=== PATIENT | female | born 1965 | race Caucasian/White ===

== ENCOUNTER 2024-03-24 13:50 | Outpatient (CLI) | payer OTHER | END 2024-03-24 13:51 | disposition home or self-care (01) | LOC: CSHCT 13:50 | PROVIDERS: ATTEND Internal Medicine | DX: J44.9 Chronic obstructive pulmonary disease, unspecified (principal); I51.7 Cardiomegaly | CPT/HCPCS: 71250; 94060; 94664; 94726; 94729; 94760 ==